=== PATIENT | male | born 1960 | race Caucasian/White ===

== ENCOUNTER 2020-04-02 13:09 | Observation (INO) | payer SELFPAY ==
[~2020-04-02 13:09] MED LIST: Iopamidol-370 76% 500 ML 1 ML ONE
[2020-04-02] MEDS ORDERED: Fentanyl 100 MCG/2 ML VIAL ONE (13:15)
[2020-04-02] MEDS ORDERED: Adacel (T-DAP) 0.5 ML SYRINGE ONE (13:15)
[2020-04-02 13:24] LABS: #Basophils 0.1 thou/uL (0.0-0.2); #Eosinphils 0.1 thou/uL (0.0-0.7); #Lymphocytes 1.7 thou/uL (1.20-3.40); #Monocytes 0.7 thou/uL (0.11-0.59); #Neutrophils 6.8 thou/uL (1.40-6.50); %Basophils 0.6 % (0.0-1.0); %Eosinophils 1.2 % (0.0-10.0); %Lymphocytes 18.3 % (21.0-51.0); %Monocytes 7.7 % (0.0-10.0); %Neutrophils 72.3 % (42.0-75.0); Hemoglobin 16.5 g/dL (14.0-18.0); Mean Corpuscular HGB CONC 33.8 g/dL (32.0-36.0); Mean Corpuscular Hemoglobin 31.5 pg (27.0-31.0); Mean Corpuscular Volume 93.1 fL (78.0-98.0); Mean Platelet Volume 7.4 fL (7.4-10.4); Platelet Count 230 thou/uL (130-400); RBC Distribution Width 11.6 % (11.5-14.5); Red Blood Cell (RBC) Count 5.24 mill/uL (4.70-6.10); White Blood Cell (WBC) Count 9.4 thou/uL (4.8-10.8)
[2020-04-02 13:29] LABS: Prothrombin Time 13.4 sec (12.0-14.7)
--- NOTE | 2020-04-02 13:30 | RAD ---
PELVIC RADIOGRAPH: DATE: 04/02/2020. PROVIDED CLINICAL HISTORY: Trauma. FINDINGS: No evidence for a fracture or other acute osseous abnormality. Bilateral total hip arthroplasty gordon ges without evidence for hardware loosening or migration. If there is persistent clinical concern, c onservative management and followup imaging are advised. IMPRESSION: As above. POS: [facility]
[2020-04-02 13:31] LABS: PTT 22.6 sec (22.9-36.1)
[2020-04-02 13:36] LABS: ALT (SGPT) 80 U/L (8-55); AST (SGOT) 61 U/L (5-34); Albumin 4.5 g/dL (3.5-5.0); Alkaline Phosphatase 48 U/L (40-110); Anion Gap 17 mmol/L (10-20); BUN (Urea Nitrogen) 22 mg/dL (8.4-25.7); Bilirubin, Total 0.6 mg/dL (0.2-1.2); Calc. Creatinine Clearance 0 mL/min (70-130); Calcium 9.8 mg/dL (7.8-10.44); Carbon Dioxide 22 mmol/L (22-29); Chloride 108 mmol/L (98-107); Estimated GFR-MDRD 48; Globulin 2.6 g/dL (2.4-3.5); Glucose 146 mg/dL (70-105); Lipase 35 U/L (8-78); Protein, Total 7.1 g/dL (6.0-8.3); Sodium 143 mmol/L (136-145)
--- NOTE | 2020-04-02 13:41 | RAD ---
PORTABLE CHEST: 04/02/20 PROVIDED CLINICAL HISTORY: Trauma. FINDINGS: Cardiac and mediastinal silhouette is within normal limits. No focal consolidation, pleural fluid or pneumothorax apparent. The bony thorax appears grossly intact. IMPRESSION: No evidence for an acute cardiopulmonary process. POS: [facility]
--- NOTE | 2020-04-02 13:43 | CT ---
CT OF BRAIN PERFORMED WITHOUT CONTRAST ENHANCEMENT: 04/02/20 HISTORY: Head injury status post fall from ladder. The ventricular and cisternal system is within normal limits. There are no signs of intracerebral hem orrhage or extra-axial fluid collections. Mastoid air cells and visualized sinuses are clear. IMPRESSION: No acute intracranial abnormalities. Findings telephoned to Dr. Sharma at 1330 hours. POS: [facility] [place]
--- NOTE | 2020-04-02 13:47 | CT ---
CT OF THE CERVICAL SPINE PERFORMED WITHOUT CONTRAST ENHANCEMENT: 04/02/20 HISTORY: Neck pain status post fall. Vertebral bodies are normal in height. Degenerative disc narrowing is seen at C5-6 and C6-7 level. Fa cets are in normal alignment. There is facet changes at the C3-4 level causing mild bilateral foramin al narrowing. Canal is mildly stenotic and at the C6-7 level there is moderate stenosis related to po sterior osteophytic change and mild bilateral foraminal narrowing. No CT evidence for fracture. The l rom apices are clear. IMPRESSION: No CT evidence of fracture of the cervical spine. Findings telephoned to Dr. Sharma. [place]: [facility] [place]
--- NOTE | 2020-04-02 14:02 | CT ---
CT CHEST, ABDOMEN AND PELVIS WITH IV CONTRAST: 04/02/20 PROVIDED CLINICAL HISTORY: Trauma. FINDINGS: The heart, pericardium, and great vessels demonstrate no evidence for traumatic abnormality. There is a small left pneumothorax. The right lung demonstrates a perifissural nodule measuring approximately 8 mm. The lungs appear otherwise free of significant opacity. The solid abdominal organs demonstrate no evidence for traumatic abnormality. Fatty infiltration of t he liver and small gallstones are seen. No bowel dilatation, inflammatory fat stranding, free fluid, or free air apparent. There is no evidence for fracture. Thoracic and lumbar spinal reconstructions demonstrate normal spin e alignment and maintenance of vertebral body heights. IMPRESSION: 1. Small left pneumothorax. 2. 8 mm right perifissural lung nodule, probably a lymph node. Six month follow-up chest CT is r ecommended. Dr. Sharma was notified via [facility] It [facility] 1:46 p.m., 04/02/20. Code CR Code LN POS: [facility]
--- NOTE | 2020-04-02 14:06 | RAD ---
LEFT HAND RADIOGRAPHS THREE VIEWS: 04/02/20 PROVIDED CLINICAL HISTORY: Pain. FINDINGS: The images are mislabeled with respect to side. There is no evidence for fracture or other acute osse ous abnormality. If there is persistent clinical concern, conservative management and follow-up imagi kaitlin are advised. IMPRESSION: As above. POS: [facility]
--- NOTE | 2020-04-02 14:08 | RAD ---
LEFT WRIST RADIOGRAPHS THREE VIEWS: 04/02/20 PROVIDED CLINICAL HISTORY: Pain status post injury. FINDINGS: The images are mislabeled with respect to side. There is no evidence for fracture or other acute osse ous abnormality. If there is persistent clinical concern, conservative management and follow-up imagi ng are advised. IMPRESSION: As above. POS: [facility]
[2020-04-02 15:01] LABS: Magnesium 1.8 mg/dL (1.6-2.6); Phosphorus 2.1 mg/dL (2.3-4.7)
[2020-04-02] MEDS ORDERED: hydrALAZINE 20 MG/ML VIAL SLOW IVP PRN (15:45)
[2020-04-02] MEDS ORDERED: Ondansetron PF 4 MG/2 ML Vial IVP PRN (15:45)
[2020-04-02] MEDS ORDERED: Dextrose 50% Abboject 50 ML SYRINGE SLOW IVP PRN (15:45)
[2020-04-02] MEDS ORDERED: Dextrose 5% in Water 1,000 ML IV PRN (15:45)
[2020-04-02] MEDS ORDERED: Morphine 4 MG/ML VIAL SLOW IVP PRN (15:45)
[2020-04-02] MEDS ORDERED: Sodium Chloride 0.9% 1,000 ML IV SCH (15:45)
[2020-04-02] MEDS ORDERED: Acetaminophen 500 MG TAB ONE (15:47)
[2020-04-02] MEDS ORDERED: Cyclobenzaprine 10 MG TAB ONE (15:47)
[2020-04-02] MEDS ORDERED: HYDROmorphone 0.5 MG/0.5 ML SYRINGE ONE (15:47)
[2020-04-02] MEDS ORDERED: Cyclobenzaprine 10 MG TAB PO PRN (15:48)
[2020-04-02] MEDS ORDERED: Sodium Phosphate 30 MMOL in Sodium Chloride 0.9% 250 ML 250 ML IVPB SCH ×2 (16:30→21:30)
[2020-04-02] MEDS ORDERED: Magnesium 2 GM/50 ML 2 GM in Premix Bag 1 BAG IVPB SCH ×2 (16:45→20:15)
--- NOTE | 2020-04-02 16:57 | HP ---
TRAUMA SURGEON: Dr. Chavez. CONSULTING PHYSICIAN: None. HISTORY OF PRESENT ILLNESS: The patient is a 60-year-old male, who presented to the emergency department via EMS as a level 2 trauma activation after he fell about 12 feet off a ladder. The patient reported that the ladder came off the roof after he shifted his weight. He fell onto his anterior left thigh. He denies loss of consciousness and any anticoagulation use. Denies neck or back pain. Numbness and tingling in the bilateral upper and lower extremities. REVIEW OF SYSTEMS: All additional 10-point review of systems negative except as indicated above. PAST MEDICAL HISTORY: Hypertension and anxiety. PAST SURGICAL HISTORY: Bilateral hip replacements. SOCIAL HISTORY: The patient denies tobacco or drug use. He drinks 1 to 2 mixed drinks per week. MEDICATIONS: Lisinopril daily and Xanax as needed. ALLERGIES: NO KNOWN DRUG ALLERGIES. PHYSICAL EXAMINATION: VITAL SIGNS: Temperature 98.7, pulse 94, respirations 16, oxygen saturations 97% on room air, blood pressure 146/88. PRIMARY SURVEY: Airway intact. Adequate breath sounds bilaterally. 2+ pulses in the bilateral radials, femorals, and DPs. GCS 15. Gross motor and sensation intact. No lacerations or external bleeding noted. He does have bruising over the dorsal aspect of the left hand as well as bruising over the left lateral face and brow. SECONDARY SURVEY: HEAD: Normocephalic. No gross palpable skull deformities. EYES: Pupils 3-2, equal, round, reactive to light bilaterally. ENT: No hemotympanum. No epistaxis. No septal hematoma. No blood in the oropharynx. Dentition is intact. No anterior neck injury/crepitus/tenderness. He does have some left-sided periorbital bruising. C-SPINE: No step-offs or deformities. Nontender. C-collar not in place. CHEST: He has left-sided anterior and lateral chest wall tenderness with no bruising. No crepitus. No abrasions or ecchymosis noted. ABDOMEN: Soft, nontender, nondistended. PELVIS: Stable to palpation. RECTAL: Deferred. GENITOURINARY: Deferred. EXTREMITIES: He has some bruising over the dorsal aspect of the left hand. No abrasions. 2+ pulses to the bilateral radials, femorals, and DPs. BACK/SPINE: No step-offs or deformities or tenderness to palpation of thoracic or lumbar spine. No abrasions or ecchymosis noted. NEUROLOGIC: 5/5 strength in bilateral supervisor hand silvering, plantar flexion, dorsiflexion, gross normal sensation x4 extremities. LABORATORY FINDINGS: White count 9.4, hemoglobin 16.5, hematocrit 48.8, platelets 230. Sodium 143, potassium 4.0, chloride 108, bicarb 22, BUN 22, creatinine 1.51, glucose 146, lactic acid 2.6, phosphorus 2.1, magnesium 1.8. Alcohol is less than 10. DIAGNOSTIC FINDINGS: CT scan of the brain demonstrates no acute intracranial abnormalities. CT scan of the C-spine demonstrates no CT evidence of fracture of the cervical spine. CT scan of the chest, abdomen, and pelvis demonstrates small left pneumothorax 8 mm right perifissural lung nodule, probably lymph node. Six-month followup chest CT is recommended. X-ray of the pelvis demonstrates no evidence of fracture or acute osseous abnormalities. Chest x-ray demonstrates no evidence of acute cardiopulmonary process. X-ray of the left wrist demonstrates there is no evidence for fracture or other osseous abnormalities. If there is persistent clinical concern, conservative management and followup imaging are advised. X-ray of the left hand demonstrates there is no evidence for fracture or other acute obvious abnormalities. ASSESSMENT: 1. Status post fall from 12 feet. 2. Small left pneumothorax. 3. Left-sided chest wall contusion. 4. Left hand contusion. 5. Right-sided 8 mm lung nodule, follow up in 6 months. 6. History of hypertension. 7. Acute traumatic pain. 8. Acute dehydration with acute kidney injury. 9. Acute hypophosphatemia. PLAN: The patient will be admitted to the Trauma Service and go to the surgical nursing floor. He will receive 1 L of IV fluids and repeat lactic acid in the morning. Replace phosphorus. He can have a regular diet. He will have aggressive pain management. We will hold off NSAIDs due to his RIGO. We will repeat blood work in the morning. Aggressive pulmonary hygiene. PT/OT. Repeat chest x-ray in the morning for further evaluation of a left-sided pneumothorax unless the patient has an increase in his oxygen demand. The patient will likely be discharged home if his chest x-ray is stable and his pain is controlled tomorrow. This patient will be discussed with Dr. Chavez after this dictation. Job ID: [id number]
[2020-04-02 17:05] LABS: Lactic Acid 2.1 mmol/L (0.5-2.2)
[2020-04-02] MEDS: Acetaminophen 500 MG TAB PO SCH ×2 (18:34→23:15)
[2020-04-02] MEDS: traMADol HCl 50 MG TAB PO SCH ×2 (18:34→23:16)
[2020-04-02] MEDS: Senokot S 8.6-50 MG TAB PO SCH (21:01)
[2020-04-02] MEDS: Gabapentin 300 MG CAP PO SCH (21:01)
[2020-04-02 23:29] VITALS: BMI 31.8
[2020-04-03 05:30] LABS: Hemoglobin 14.5 g/dL (14.0-18.0); Mean Corpuscular Hemoglobin 32.3 pg (27.0-31.0); Mean Corpuscular Volume 95.1 fL (78.0-98.0); Mean Platelet Volume 7.4 fL (7.4-10.4); Platelet Count 183 thou/uL (130-400); RBC Distribution Width 11.8 % (11.5-14.5); White Blood Cell (WBC) Count 9.2 thou/uL (4.8-10.8)
[2020-04-03] MEDS: Acetaminophen 500 MG TAB PO SCH ×2 (06:00→11:09)
[2020-04-03] MEDS: traMADol HCl 50 MG TAB PO SCH ×2 (06:00→11:09)
[2020-04-03 06:01] LABS: Anion Gap 8 mmol/L (10-20); BUN (Urea Nitrogen) 21 mg/dL (8.4-25.7); Calc. Creatinine Clearance 106 mL/min (70-130); Calcium 8.3 mg/dL (7.8-10.44); Carbon Dioxide 33 mmol/L (22-29); Chloride 105 mmol/L (98-107); Estimated GFR-MDRD 66; Glucose 119 mg/dL (70-105); Magnesium 2.4 mg/dL (1.6-2.6); Phosphorus 5.5 mg/dL (2.3-4.7); Potassium 4.3 mmol/L (3.5-5.1); Sodium 142 mmol/L (136-145)
[2020-04-03 06:47] LABS: Amphetamine Not Detected (NotDetected); Barbiturates Screen Not Detected (NotDetected); Benzodiazepine Screen Not Detected (NotDetected); Cocaine Metabolite Screen Not Detected (NotDetected); Medtox Control Line Valid? VALID (VALID); Medtox Reader # READER 4; Methadone Not Detected (NotDetected); Methamphetamine Not Detected (NotDetected); Opiate Screen Detected (NotDetected); Oxycodone Screen Not Detected (NotDetected); Phencyclidine (PCP) Not Detected (NotDetected); THC/Cannabinoid Screen Not Detected (NotDetected); Tricyclic Screen Not Detected (NotDetected)
--- NOTE | 2020-04-03 07:38 | RAD ---
PORTABLE CHEST: DATE: 04/03/2020. PROVIDED CLINICAL HISTORY: Pneumothorax followup. FINDINGS: Comparison 04/02/2020. Cardiac and mediastinal silhouette is unchanged in appearance. No focal consol idation is evident. The known small left-sided pneumothorax is not radiographically apparent. No ev idence for pleural fluid. IMPRESSION: The known small left pneumothorax is not radiographically apparent. POS: [facility]
[2020-04-03] MEDS: Senokot S 8.6-50 MG TAB PO SCH (08:55)
[2020-04-03] MEDS: Gabapentin 300 MG CAP PO SCH ×2 (08:55→15:16)
[2020-04-03] MEDS ORDERED: Polyethylene Glycol 3350 17 GM Packet PO SCH (09:00)
[2020-04-03 12:32] VITALS: BP 113/69; TEMP 98.8
--- NOTE | 2020-04-03 16:57 | DIS ---
DATE OF ADMISSION: 04/02/2020 DATE OF DISCHARGE: 04/03/2020 ADMITTING DIAGNOSES: Fall from 12 feet, small left-sided pneumothorax, left-sided chest wall contusion, and acute kidney injury. DISCHARGE DIAGNOSES: Fall from 12 feet, small left-sided pneumothorax, left-sided chest wall contusion, and acute kidney injury. CONSULTING PHYSICIAN: None. PROCEDURES: None. HOSPITAL COURSE: The patient is a 60-year-old male, presented to the emergency department from EMS as a level 2 trauma activation after he had a fall from a ladder about 12 feet. He was found to have a very small left-sided pneumothorax in the left anterior chest wall contusion as well as acute kidney injury. Repeat chest x-ray the next morning demonstrated no residual pneumothorax. Pain was well controlled. At the time of discharge, acute kidney injury resolved with IV hydration. The patient also had an 8 mm lung nodule on the left side, which he was advised to follow up with his primary care physician in [address] months for repeat head CT and further workup. The patient stated he understood. At the time of discharge, the patient's pain was well controlled. He was tolerating a regular diet. He was not requiring any oxygen. He was ambulating without difficulties and voiding without any issues. DISCHARGE DISPOSITION: Home. DISCHARGE CONDITION: Satisfactory. PHYSICAL EXAMINATION: VITAL SIGNS: Temperature 98.8, pulse 75, respirations 16, oxygen saturation 97% on room air, and blood pressure 113/69. GENERAL: Well-appearing middle-aged male, sitting up in bed with no signs of acute distress. PULMONARY: Equal chest rise and fall. No signs of acute respiratory distress. CARDIAC: Regular rate and rhythm. DISCHARGE INSTRUCTIONS: The patient was discharged home. Activity as tolerated. Regular diet. No PT needs. He will take his incentive spirometer. DISCHARGE MEDICATIONS: Include, 1. Tylenol. 2. Flexeril. 3. Gabapentin. 4. MiraLAX. 5. Tramadol. 6. Lisinopril. 7. Hydrochlorothiazide. FOLLOWUP APPOINTMENTS: The patient lives in [place]. So, he will follow up with his primary care physician in 2 weeks with a chest x-ray, that physician will also continue pain management. We will contact the office of Dr. Nolvia Shelley at [facility] in [place] to update the PCP that the patient was in the hospital in our recommendations. This patient was seen and evaluated by Dr. Chavez and myself on the day of discharge. This is merely a summary of the hospitalization. For full details, please see his entire medical record. [place] prescription monitoring program website was attempted to be accessed to check the patient's medications; however, it was down at the time of discharge. The patient was discharged home on pain medications that were used to treat acute traumatic pain during his hospitalization. Job ID: [id number]
== END 2020-04-03 15:58 | disposition home or self-care (01) ==
LOC: ERS 13:09 → SURG A 15:48
PROVIDERS: ADMIT Surgery; ATTEND Surgery
DX: S20.212A Contusion of left front wall of thorax, initial encounter (principal); J93.9 Pneumothorax, unspecified; S60.222A Contusion of left hand, initial encounter; G89.11 Acute pain due to trauma; N17.9 Acute kidney failure, unspecified; E86.0 Dehydration; E83.39 Other disorders of phosphorus metabolism; I10 Essential (primary) hypertension; F41.9 Anxiety disorder, unspecified; R91.1 Solitary pulmonary nodule; Z79.899 Other long term (current) drug therapy; W11.XXXA Fall on and from ladder, initial encounter
CPT/HCPCS: 36415; 36600; 70450; 71045; 71260; 72125; 72170; 74177; 80048; 80053; 80306; 80307; 83605; 83690; 83735; 84100; 85025; 85027; 85610; 85730; 90715; 96361; 96365; 96366; 96367; 96374; 96375; G0378; G0390; J1170; J3010; J3475; J7050; Q9967